=== PATIENT | female | born 1980 | race Caucasian/White ===

== ENCOUNTER 2019-12-06 13:10 | Emergency (ER) | payer OTHER ==
[~2019-12-06] VITALS: Ht 175.3 cm; Wt 167.8 kg
[2019-12-06] MEDS ORDERED: NEURONTIN600 M1 (13:20)
[2019-12-06] MEDS ORDERED: PROTONIX40 M1 (13:21)
[2019-12-06] MEDS ORDERED: COZAAR25 MG (13:21)
[2019-12-06] MEDS ORDERED: PROSCAR5 MG (13:21)
[2019-12-06] MEDS ORDERED: SYNTHROID50 MCG (13:21)
== END 2019-12-06 17:53 | disposition home or self-care (01) ==
LOC: ER 13:10
DX: K21.9 Gastro-esophageal reflux disease without esophagitis (principal); R07.89 Other chest pain